=== PATIENT | male | born 1960 | race Caucasian/White ===

== ENCOUNTER 2019-08-14 07:36 | Outpatient (CLI) | payer MEDICAID ==
[~2019-08-14] VITALS: Ht 180.3 cm; Wt 159.1 kg
[2019-08-14 07:54] LABS: HEMOGLOBIN 9.6 g/dL (13.5-17.5); MCH 24.6 pg (26.0-34.0); MCV 81.8 fL (80.0-100.0); MEAN PLATELET VOLUME 9.6 fL (7.4-10.4); PLATELET COUNT 132 10x3/uL (130-400); RBC 3.91 10x6/uL (4.20-6.10); RDW 20.6 % (11.5-14.5); WBC 3.4 10x3/uL (4.8-10.8)
[2019-08-14 08:02] LABS: INR 1.56 (0.85-1.17); PROTIME 18.5 SECONDS (11.6-15.0)
[2019-08-14 08:16] LABS: ALBUMIN 2.3 g/dL (3.4-5.0); ANION GAP 10.2 mmol/L (8-16); BILIRUBIN - TOTAL 0.57 mg/dL (0.2-1.3); CALCIUM 8.7 mg/dL (8.5-10.1); CARBON DIOXIDE 23.6 mmol/L (21.0-32.0); CREATININE - SERUM 1.2 mg/dL (0.6-1.3); POTASSIUM - SERUM 3.8 mmol/L (3.5-5.1); PROTEIN - SERUM 7.2 g/dL (6.4-8.2)
[2019-08-14 08:27] LABS: EOSINOPHILS 2 % (0-7); LYMPHOCYTES 52 % (15-50); MONOCYTES 2 % (2-11); NEUTROPHILS 44 % (40-80)
[2019-08-14 08:28] LABS: PLATELET ESTIMATE NORMAL
[2019-08-14 08:55] VITALS: Ht 180.3 cm; Wt 159.1 kg
[2019-08-14] MEDS ORDERED: COUMADIN3 MG PO (09:24)
[2019-08-14] MEDS ORDERED: ALDACTONE100 MG PO (09:24)
[2019-08-14] MEDS ORDERED: LASIX40 MG PO (09:24)
[2019-08-14] MEDS ORDERED: DILANTIN100 MG PO ×2 (09:25→09:26)
[2019-08-14] MEDS ORDERED: PROTONIX40 MG PO (09:25)
[2019-08-14] MEDS ORDERED: JANUVIA50 MG PO (10:35)
[2019-08-14] MEDS ORDERED: JARDIANCE10 MG PO (10:35)
--- NOTE | 2019-08-14 11:05 | NUR ---
1100 RETURNED FROM RADIOLOGY. NO MEDICATIONS GIVEN. PARACENTESIS COMPLETED WITH JUST LOCAL ANESTHETIC
== END 2019-08-14 12:00 | disposition home or self-care (01) ==
LOC: D.SP 07:36 → D.CT 10:00 → D.SP 12:00
PROVIDERS: General Practice; ATTEND Nurse Practitioner Acute Care
DX: K74.60 Unspecified cirrhosis of liver (principal); K72.90 Hepatic failure, unspecified without coma; Z79.899 Other long term (current) drug therapy; Z79.01 Long term (current) use of anticoagulants; R06.00 Dyspnea, unspecified; E11.9 Type 2 diabetes mellitus without complications; R63.5 Abnormal weight gain